=== PATIENT | male | born 1995 | race Two or more races ===

== ENCOUNTER 2024-11-10 20:24 | Emergency (ER) | payer MEDICAID, SELFPAY ==
[2024-11-10 20:25] VITALS: BMI 49.4
[2024-11-10 20:38] VITALS: BP 143/85; PULSE 79; RESP 20; TEMP 36.6; O2SAT 96
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
[2024-11-10] MEDS: DIPHTH,PERTUSS(ACELL),TET VAC 0.5 ML VIAL IMi (21:36)
[2024-11-10] MEDS: SILVER SULFADIAZINE CR 1% 25 GM TUBE TOP (21:37)
== END 2024-11-10 23:00 | disposition home or self-care (01) ==
PROVIDERS: Emergency Provider Emergency Medicine
DX: T31.0 Burns involving less than 10% of body surface (principal); T23.202A Burn of second degree of left hand, unspecified site, initial encounter; X08.8XXA Exposure to other specified smoke, fire and flames, initial encounter; Z23 Encounter for immunization
CPT/HCPCS: 90471; 90715; 99282; A9270

== ENCOUNTER → 2025-02-12 | Outpatient (CLI) | payer MEDICAID, SELFPAY ==
--- NOTE | 2025-02-12 | XR_ITS ---
Examination: PA lateral chest 2 views TECHNIQUE: Upright PA lateral chest 2 views Exam date and time: 12/15/2024 1339 hours INDICATIONS: Preop FINDINGS: Normal heart size. Lungs are clear. The osseous structures are intact IMPRESSION: No active disease
== END | disposition home or self-care (01) ==
PROVIDERS: Referring Provider Nurse Practitioner Family; Visit Provider Nurse Practitioner Family
DX: Z01.810 Encounter for preprocedural cardiovascular examination (principal)
CPT/HCPCS: 71046

== ENCOUNTER 2025-05-15 10:41 | Emergency (ER) | payer MEDICAID, SELFPAY ==
--- NOTE | 2025-05-15 | XR_ITS ---
Examination: MRI brain with intravenous contrast TECHNIQUE: Axial sagittal coronal brain MRI images post intravenous administration 20 cc gadolinium INDICATIONS: Left facial drooling, diagnosis meningioma, large low density mass left frontal temporal lobe with severe mass effect on CT brain scan May 24, 2022 Date and time: 09/14/2025 1309 hours FINDINGS: Left craniotomy defect with likely postsurgical extra-axial fluid accumulation peripheral to the left cerebral hemisphere Ventricles are not significantly enlarged There is no mass effect upon the ventricular system No enhancing cerebellar or cerebral lesions Pituitary is not enlarged Fourth ventricle midline IMPRESSION: No abnormal enhancing cerebellar or cerebral lesions
[2025-05-15 10:42] VITALS: BMI 40.3
[2025-05-15 10:49] VITALS: BP 167/84; PULSE 68; RESP 18; TEMP 36.9; O2SAT 100
[2025-05-15 11:57] LABS: Basophils % (Auto) 1 % (0-2.5); Eosinophils # (Auto) 0.1 Thou/mm3 (0.0-0.5); Eosinophils % (Auto) 2 % (0-10); Hematocrit 44.4 % (41.0-53.0); Hemoglobin 15.4 g/dL (13.5-16.0); Immature Granulocytes % (Auto) 0 % (0-0); Lymphocytes % (Auto) 36 % (10-50); Mean Corpuscular HGB Conc 34.7 g/dl (31.0-37.0); Mean Corpuscular Hemoglobin 28.4 pg (25.0-35.0); Mean Corpuscular Volume 82 fL (80-100); Monocytes # (Auto) 0.5 Thou/mm3 (0.0-0.8); Monocytes % (Auto) 8 % (0-12); Neutrophils # (Auto) 2.9 Thou/mm3 (1.8-7.7); Neutrophils % (Auto) 53 % (37-80); Nucleated Red Blood Cell % 0 /100 WBC (0); Platelet Count 237 Thou/mm3 (140-440); RDW Standard Deviation 43.2 fL (35.1-43.9); Red Blood Count 5.42 Miln/mm3 (4.50-5.90); White Blood Count 5.5 Thou/mm3 (3.8-10.6)
[2025-05-15 12:10] LABS: INR 1.1 (0.9-1.3); Prothrombin Time 11.5 Seconds (9.0-12.2)
[2025-05-15 12:15] LABS: Alanine Aminotransferase 21 U/L (10-49); Albumin, Serum 4.1 gm/dL (3.5-5.0); Albumin/Globulin Ratio 1.7 (1.2-2.2); Alkaline Phosphatase 56 U/L (46-116); Anion Gap 12 (7-16); Aspartate Amino Transferase 24 U/L (0-34); BUN/Creatinine Ratio 9 Ratio (12-20); Bilirubin,Total 1.4 mg/dL (0.3-1.2); Blood Urea Nitrogen 7 mg/dL (9-23); Calcium 9.3 mg/dL (8.3-10.6); Calcium (Corrected) 9.3 mg/dL (8.5-10.1); Carbon Dioxide 26.8 mMol/L (20.0-31.0); Chloride 103 mMol/L (98-107); Creatinine (Component) 0.8 mg/dL (0.6-1.3); Estimated Creatinine Clearance 189.8 mL/min (>60); Globulin 2.4 gm/dL (2.3-3.5); Glucose 80 mg/dL (74-106); Osmolality,Calculated 280 (275-295); Potassium 3.6 mMol/L (3.4-5.1); Sodium 142 mMol/L (136-145); Total Protein 6.5 gm/dL (5.7-8.2); eGFR > 60 See Note
[2025-05-15] MEDS: SODIUM CHLORIDE 0.9% 1000 ML 1,000 ML 100 ML IV (12:54)
--- NOTE | 2025-05-15 12:56 | PD.EDADULT ---
ED General RME/HPI General Chief complaint: General Adult/[facility] Complain Stated complaint: WATER DRIBBLED FROM MOUTH; HX BRAIN TUMOR Time Seen by Provider: 05/15/25 10:59 Arrival date/time: 05/15/25 10:41 Limitations: no limitations RME / HPI RME / HPI narrative: 30 year old who is right hand dominant male presents to the ED for evaluation of left facial weakness that occurred last night. He reports that around 9:00 PM, while swishing mouthwash, he noticed it leaking from the left side of his mouth. The facial weakness lasted several minutes and then resolved. He awoke this morning at his baseline with no residual weakness or facial droop. His mother, who is present, reports that he experienced a similar episode of facial weakness several years ago. At that time, a head CT revealed a hypodense lesion in the left frontal lobe with compression of the left ventricle and midline shift. He was transferred to [facility], where he underwent surgical resection followed by radiation therapy approximately two years ago. The patient denies any current or recent unilateral extremity weakness, changes in gait, speech disturbances, or visual changes. No other associated symptoms reported. Related Data Previous Rx's ?Medication ?Instructions ?Recorded ibuprofen 600 mg tablet 600 mg PO Q8H PRN pain #20 tabs 11/10/24 silver sulfadiazine 1 % topical 1 applic topical BID #20 grams 11/10/24 cream Allergies Allergy/AdvReac Type Severity Reaction Status Date / Time No Known Allergies Allergy Verified 05/15/25 10:44 Review of Systems Review of Systems Systems Reviewed: All systems reviewed, normal except as documented Past Medical History Past Medical History NEUROLOGIC: Positive Neurological Disorders and Brain Tumor (in remission since 2023) Surgical History SURGICAL: Positive Abdominal Surgery (Gastric sleeve 02/2025) and Neurologic Surgery (may 2022 at [facility] [place], FOR BRAIN TUMOR) Social History SMOKING STATUS: Never smoker ED Exam General Limitations: Present no limitations General appearance: Present alert and in no apparent distress Head Head exam: Present atraumatic, normocephalic and normal inspection Eye Eye exam: Present normal appearance, PERRL and EOMI ENT ENT exam: Present normal exam, normal oropharynx, mucous membranes moist and other (There is a sebaceous cyst on right side of face ) Neck Neck exam: Present normal inspection, full ROM and trachea midline Chest Chest inspection: Present normal inspection and symmetric chest wall rise Respiratory Respiratory exam: Present normal lung sounds bilaterally Cardiovascular Cardiovascular exam: Present regular rate, normal rhythm and normal heart sounds Abdominal Exam Abdominal exam: Present soft and normal bowel sounds Extremities Exam Extremities exam: Present normal inspection and full ROM Back Exam Back exam: Present normal inspection and full ROM Neurological Exam Neurological exam: Present alert, oriented X3 and CN II-XII intact Psychiatric Psychiatric exam: Present normal affect and normal mood Skin Skin exam: Present warm, dry, intact and normal color Course Quality Measures none Orders Category Date Time Status Director Advertising NOW Care 05/15/25 11:09 Completed Continuous Pulse Oximetry NOW Care 05/15/25 11:09 Completed Insert IV NOW Care 05/15/25 11:09 Completed MRI Screening NOW Care 05/15/25 11:09 Completed MR head/brain w con Stat Exams 05/15/25 Completed CBC Stat Lab 05/15/25 11:30 Completed Comprehensive Metabolic Panel Stat Lab 05/15/25 11:30 Completed Prothrombin Time with INR Stat Lab 05/15/25 11:30 Completed Sodium Chloride 0.9% 1000 ml [Ns] 1,000 ml Med 05/15/25 11:08 Discontinued IV 100 mls/hr Vital Signs Vital signs: Vital Signs Temperature 98.5 F 05/15/25 10:49 Pulse Rate 68 05/15/25 10:49 Respiratory Rate 18 05/15/25 10:49 Blood Pressure 167/84 H 05/15/25 10:49 Pulse Oximetry (%) 100 05/15/25 10:49 Oxygen Delivery Method Room Air 05/15/25 10:49 Pulse ox is 100% on room air which is adequate. Discharge Plan Plan Patient Disposition: HOME (Self Care) Prescriptions/Referrals Prescriptions/Med Rec: No Action silver sulfadiazine 1 % cream 1 applic topical BID Qty: 20 0RF Rx Instructions: apply a 1.5 mm thickness ibuprofen 600 mg tablet 600 mg PO Q8H PRN (Reason: pain) Qty: 20 0RF Referrals: Alexa Olmstead NP [Primary Care Provider] - In 1 week Problem List Clinical Impression: Facial weakness Patient/Caregiver Discharge Instructions Additional Instructions: Follow-up with your primary care doctor in 3 to 5 days for recheck. You can return to the emergency department sooner if symptoms worsen or if you notice any new, concerning issues. Print Language: [place] Stand Alone Forms: Birdie Award Info., Patient Portal Info Letter MDM Narrative [facility] hospital course: [place], am scribing for and in the presence of Dr. Cox. Medical Records Reviewed [facility] I reviewed ED visit on 05/24/2022 for evaluation of headache. During that time head CT showed a 5.2 x 4.4 cm extra-axial well-defined hypodense lesion in the left frontal temporal region causing mass-effect in the form of effacement of the adjacent foci, compression of the left lateral ventricle and midline shift of 7.5 mm toward the right side. Was transferred to [facility], accepted by neurosurgeon Dr. Lui. Meds/Rx Considered, not Ordered None Labs/Rad/Tests considered, not Ordered None Chronic Illness/Social Conditions which may negatively complicate care or outcome(s)-explain: None or not applicable EKG EKG not done Lab Interpretation Lab(s) interpretation(s): CBC unremarkable CMP shows elevated bili, patient has no abdominal complaints. Imaging Radiology reports / interpretation(s): Ordering Physician: Behzad Cox MD Date of Service: 05/15/25 Procedure(s): MR head/brain w con Accession Number(s): [id number] cc: Behzad Cox MD; Nagi Tobar MD; Alexa Olmstead NP~ Examination: MRI brain with intravenous contrast TECHNIQUE: Axial sagittal coronal brain MRI images post intravenous administration 20 cc gadolinium INDICATIONS: Left facial drooling, diagnosis meningioma, large low density mass left frontal temporal lobe with severe mass effect on CT brain scan May 24, 2022 Date and time: 09/14/2025 1309 hours FINDINGS: Left craniotomy defect with likely postsurgical extra-axial fluid accumulation peripheral to the left cerebral hemisphere Ventricles are not significantly enlarged There is no mass effect upon the ventricular system No enhancing cerebellar or cerebral lesions Pituitary is not enlarged Fourth ventricle midline IMPRESSION: No abnormal enhancing cerebellar or cerebral lesions Dictated By: Nagi Tobar MD Signed By: <Electronically signed by Nagi Tobar MD in OV> 05/15/25 1419 Medication Administration(s) Medication Administration History Discontinued Medications Sodium Chloride (Ns) 1,000 mls @ 100 mls/hr IV .Q10H ONE Stop: 05/15/25 21:07 Last Admin: 05/15/25 12:54 Dose: 100 mls/hr Documented By: VALENTIN See above Diagnosis Most likely dx, and/or detailed dx discussion: Facial weakness Dispositon Disposition: Discharge Home
[2025-05-15 12:59] VITALS: BP 116/63; PULSE 58; RESP 16; O2SAT 95
[2025-05-15 13:04] VITALS: PULSE 58
[2025-05-15 15:06] VITALS: BP 137/63; PULSE 61; RESP 16; TEMP 36.7; O2SAT 95
== END 2025-05-15 15:06 | disposition home or self-care (01) ==
PROVIDERS: Emergency Provider Family Medicine; PCP Nurse Practitioner Family
DX: R29.810 Facial weakness (principal); D32.9 Benign neoplasm of meninges, unspecified
CPT/HCPCS: 36415; 70552; 80053; 85025; 85610; 99285; A9579; J7030